=== PATIENT | female | born 1935 | race Caucasian/White ===

== ENCOUNTER → 2017-01-12 | Outpatient (CLI) | payer MEDICARE ==
[~2017-01-12] MED LIST: ESTR0.62 PO; FLUT1DIS2 IH; LEVO75TA4 PO; MTP25TSR PO; MULT-955 PO; OMAL150V SC; TRIA1TAB3 PO
== END ==
LOC: RT 13:04
PROVIDERS: ATTEND Internal Medicine
DX: I47.1 Supraventricular tachycardia (principal); I20.9 Angina pectoris, unspecified
CPT/HCPCS: 93005